=== PATIENT | male | born 1960 | race Caucasian/White ===

== ENCOUNTER 2019-02-19 12:16 | Emergency (ER) | payer OTHER ==
[~2019-02-19] VITALS: Ht 182.9 cm; Wt 90.0 kg
[~2019-02-19 12:16] MED LIST: ACET500C5 PO; AMOX1TAB10 PO; IBUP800T48 PO
[2019-02-19 12:27] VITALS: Ht 182.9 cm; Wt 90.0 kg
[2019-02-19] MEDS ORDERED: CEFAZOLIN 1 GM/50 ML (PMX) 50 ML IVPB SCH (14:00)
[2019-02-19] MEDS ORDERED: LIDOCAINE 1% (MPF) 5 ML VIAL INJ ONE (14:00)
[2019-02-19 15:17] VITALS: BP 146/79; PULSE 85; RESP 18
== END 2019-02-19 15:19 | disposition home or self-care (01) ==
LOC: FTE 12:16
DX: S62.633A Displaced fracture of distal phalanx of left middle finger, initial encounter for closed fracture (principal); S60.142A Contusion of left ring finger with damage to nail, initial encounter; S61.313A Laceration without foreign body of left middle finger with damage to nail, initial encounter; W20.8XXA Other cause of strike by thrown, projected or falling object, initial encounter; Y92.9 Unspecified place or not applicable
CPT/HCPCS: 12001; 73140; 96374; J0690; Z7502; Z7610